=== PATIENT | male | born 1990 | race Caucasian/White ===

== ENCOUNTER 2020-12-26 11:22 | Emergency (ER) | payer OTHER ==
[~2020-12-26] VITALS: Ht 182.9 cm; Wt 72.6 kg
[2020-12-26] MEDS ORDERED: IBUPROFEN 600 MG TABLET PO ONE (11:30)
[2020-12-26] MEDS ORDERED: ALBUTEROL SULFATE 8 GM HFA.AER.AD IH PRN (11:45)
[2020-12-26] MEDS ORDERED: IBUPROFEN 600 MG TABLET ONE (11:46)
--- NOTE | 2020-12-26 12:05 | NUR ---
Pt able to tolerate meds as prescribed. NAD vSS RA pending lab results
[2020-12-26] MEDS ORDERED: IBUP-1955 PO (12:34)
[2020-12-26] MEDS ORDERED: ALBU6.7H9 INH (12:34)
--- NOTE | 2020-12-26 12:55 | NUR ---
Patient discharged to home in stable condition. Written and verbal after care instructions given. Patient verbalizes understanding of instructions. Stressed follow up or return to ER for worsening s/s.
[2020-12-26 12:56] VITALS: BP 128/72
== END 2020-12-26 12:56 | disposition home or self-care (01) ==
LOC: ER 11:24
DX: B34.9 Viral infection, unspecified (principal); R06.2 Wheezing; R53.81 Other malaise; Z20.822 Contact with and (suspected) exposure to COVID-19; Z87.09 Personal history of other diseases of the respiratory system
CPT/HCPCS: 71045; 87426; 99284; U0003; A4663; J3535